=== PATIENT | female | born 1995 | race African-American/Black ===

== ENCOUNTER 2019-09-11 18:20 | Emergency (ER) | payer SELFPAY ==
[~2019-09-11] VITALS: Ht 170.2 cm; Wt 72.0 kg
[~2019-09-11 18:20] MED LIST: NO MEDICATIONS REPORTED
[2019-09-11] MEDS ORDERED: ACETAMINOPHEN 325MG TABLET PO ONE (19:00)
[2019-09-11] MEDS ORDERED: DIAZEPAM 5 MG TABLET PO ONE (19:30)
[2019-09-11] MEDS ORDERED: KETOROLAC 30MG/ML VIAL IM ONE (21:15)
[2019-09-11 21:23] VITALS: BP 124/76
[2019-09-11 21:42] LABS: UCG SCREEN NEGATIVE
== END 2019-09-11 21:33 | disposition home or self-care (01) ==
LOC: ER 18:20
DX: J20.9 Acute bronchitis, unspecified (principal); M94.0 Chondrocostal junction syndrome [Tietze]; F12.10 Cannabis abuse, uncomplicated
CPT/HCPCS: 71045; 81025; 93005; 96372; 99284; J1885

== ENCOUNTER 2021-07-06 15:45 | Inpatient (IN) | payer MEDICAID ==
[~2021-07-06] VITALS: Ht 162.6 cm; Wt 72.6 kg
[2021-07-06] MEDS ORDERED: BUTORPHANOL TARTRATE 2 MG/ML VIAL IV PRN (16:00)
[2021-07-06] MEDS ORDERED: LACTATED RINGERS 1,000 ML IV SCH (16:00)
[2021-07-06] MEDS ORDERED: NALOXONE HCL 0.4 MG/ML 1ML VIAL IM PRN (16:00)
[2021-07-06] MEDS ORDERED: LIDOCAINE HCL 1% 20ML VIAL (Pyxis) INJ INFIL SCH (16:00)
[2021-07-06] MEDS ORDERED: MISOPROSTOL 100MCG TABLET VG SCH (16:00)
[2021-07-06] MEDS ORDERED: DEXT 5%/LR + PITOCIN 20UNITS/L 1,000 ML IV SCH ×2 (16:00→18:00)
[2021-07-06] MEDS ORDERED: BETAMETHASONE ACET/BETAMET 30 MG/5 ML VIAL IM NR (16:30)
[2021-07-06] MEDS ORDERED: PENICILLIN G POTASSIUM 5 MMU in DEXT 5% WATER 100 ML IV SCH (16:30)
[2021-07-06] MEDS ORDERED: MAGNESIUM 4 G PREMIX 100 ML IV NR (16:30)
[2021-07-06 16:48] LABS: BASOPHILS % 0.3 % (0.0-2.0); HEMOGLOBIN. 9.5 g/dL (12.0-16.0); LYMPHOCYTES % 18.4 % (20.0-50.0); MEAN CORPUSCULAR HEMOGLOBIN 24.8 pg (28.0-32.0); MEAN CORPUSCULAR VOLUME 75.8 fL (81.0-99.0); MEAN PLATELET VOLUME 7.5 fl (7.4-10.4); MONOCYTES % 9.1 % (2.0-8.0); NEUTROPHILS % 70.2 % (40.0-76.0); PLATELET 239 x1000/uL (130-400); RED BLOOD CELL COUNT 3.83 mill/uL (4.2-5.4); RED CELL DISTRIBUTION WIDTH 14.2 % (11.6-14.6)
[2021-07-06 16:51] LABS: CLARITY URINE CLEAR (CLEAR); COLOR URINE YELLOW (YELLOW); KETONES URINE NEGATIVE (NEGATIVE); LEUKOCYTE ESTERASE URINE 1+ (NEGATIVE); NITRITE URINE NEGATIVE (NEGATIVE); OCCULT BLOOD URINE NEGATIVE (NEGATIVE); PH URINE 7.5 (4.5-8.0); PROTEIN URINE NEGATIVE (NEGATIVE); SPECIFIC GRAVITY URINE 1.021 (1.005-1.030); UROBILINOGEN URINE 0.2 E.U./dL (0.2-1.0)
[2021-07-06 17:00] LABS: PARTIAL THROMBOPLASTIN TIME 24.4 sec (23.4-31.0); PROTHROMBIN TIME 10.4 sec (9.6-11.0)
[2021-07-06] MEDS ORDERED: PROPOFOL 200MG/20ML VIAL IV ONE (17:07)
[2021-07-06] MEDS ORDERED: LIDOCAINE HCL/PF 1% 10 MG/ML 5ML VIAL ONE (17:08)
[2021-07-06] MEDS ORDERED: SUCCINYLCHOLINE CHLORIDE 200MG/10ML IV ONE (17:08)
[2021-07-06 17:15] LABS: *BARBITURATES SCREEN URINE NEGATIVE (NEGATIVE); *BENZODIAZEPINES SCREEN URINE NEGATIVE (NEGATIVE); *COCAINE SCREEN URINE NEGATIVE (NEGATIVE); METHADONE URINE SCREEN NEGATIVE (NEGATIVE); OPIATES URINE SCREEN NEGATIVE (NEGATIVE); PHENCYCLIDINE URINE SCREEN NEGATIVE (NEGATIVE)
[2021-07-06 17:16] LABS: *AMPHETAMINES SCREEN URINE NEGATIVE (NEGATIVE)
[2021-07-06] MEDS ORDERED: CEFAZOLIN SODIUM 1000MG/VIAL ONE (17:17)
[2021-07-06] MEDS ORDERED: OXYTOCIN 10 UNITS/ML 1ML ONE (17:19)
[2021-07-06] MEDS ORDERED: ROCURONIUM BROMIDE 10MG/ML VIAL 5ML IV ONE (17:20)
[2021-07-06] MEDS ORDERED: MIDAZOLAM HCL 2 MG/2 ML VIAL ONE (17:27)
[2021-07-06] MEDS ORDERED: FENTANYL CITRATE/PF 50MCG/ML 2ML VIAL ONE (17:27)
[2021-07-06 17:28] LABS: CANNABINOID URINE SCREEN PRESUMTIVE POSITIVE (NEGATIVE)
[2021-07-06] MEDS ORDERED: MAGNESIUM 20 G PREMIX (L & D) 500 ML IV SCH (17:30)
[2021-07-06] MEDS ORDERED: HYDROMORPHONE HCL/PF 2MG/ML CPJ IV PRN (17:30)
[2021-07-06] MEDS ORDERED: KETOROLAC 60MG/2ML VIAL IM ONE (17:40)
[2021-07-06] MEDS ORDERED: GLYCOPYRROLATE 0.2 MG/ML 2ML VIAL ONE (17:51)
[2021-07-06] MEDS ORDERED: NEOSTIGMINE METHYLSULFATE 1MG/ML 10 ML VIAL ONE (17:51)
[2021-07-06] MEDS ORDERED: ONDANSETRON HCL 4MG/2ML INJ ONE (17:51)
[2021-07-06] MEDS ORDERED: HYDROMORPHONE HCL/PF 2MG/ML (OR) ONE (17:52)
[2021-07-06] MEDS ORDERED: RHO(D) IMMUNE GLOBULIN 300 MCG/SYR IM PRN (18:00)
[2021-07-06] MEDS ORDERED: ONDANSETRON HCL 4MG/2ML INJ IV PRN (18:00)
[2021-07-06] MEDS ORDERED: HYDROCODONE/ACETAMINOPHEN 5/325MG TABLET PO PRN (18:00)
[2021-07-06 18:07] LABS: HEPATITIS B SURFACE ANTIGEN NEGATIVE
[2021-07-06 20:30] VITALS: BP 112/77
[2021-07-06] MEDS ORDERED: PENICILLIN G POTASSIUM 2.5 MMU in DEXTROSE 5% WATER 50 ML IV SCH (20:30)
[2021-07-06] MEDS ORDERED: NALOXONE HCL 0.4 MG/ML 1ML VIAL IV PRN (23:15)
[2021-07-07] VITALS: BP 100/68
[2021-07-07] MEDS ORDERED: INFLUENZA VACCINE 05/PF 0.5 ML SYRINGE IM ONE (01:00)
[2021-07-07] MEDS ORDERED: TETANUS, DIPHTHERIA, PERTUSSIS VAC/PF 0.5ML (>10YR OLD) IM ONE (01:00)
[2021-07-07] MEDS: ACETAMINOPHEN WITH CODEINE 300/30MG TABLET PO PRN ×4 (01:14→20:06)
[2021-07-07] MEDS: IBUPROFEN 400MG TABLET PO PRN ×3 (03:05→16:23)
[2021-07-07 04:00] VITALS: BP 106/56
[2021-07-07 07:51] LABS: HEMATOCRIT. 24.1 % (36.0-48.0); HEMOGLOBIN. 7.7 g/dL (12.0-16.0); MEAN CORPUSCULAR HEMOGLOBIN 24.2 pg (28.0-32.0); MEAN CORPUSCULAR VOLUME 75.8 fL (81.0-99.0); MEAN PLATELET VOLUME 7.7 fl (7.4-10.4); PLATELET 223 x1000/uL (130-400); RED BLOOD CELL COUNT 3.18 mill/uL (4.2-5.4); RED CELL DISTRIBUTION WIDTH 14.2 % (11.6-14.6)
[2021-07-07 08:00] VITALS: BP 104/68
[2021-07-07 15:56] VITALS: BP 102/64
[2021-07-07 19:30] VITALS: BP 99/63
[2021-07-07] MEDS: DOCUSATE SODIUM 100MG CAPSULE PO SCH (21:04)
[2021-07-07 21:08] LABS: PLATELET ESTIMATE NORMAL
[2021-07-08 04:00] VITALS: BP 103/48
[2021-07-08 08:00] VITALS: BP 99/63
[2021-07-08] MEDS: ACETAMINOPHEN WITH CODEINE 300/30MG TABLET PO PRN ×3 (08:12→17:05)
[2021-07-08] MEDS: IBUPROFEN 400MG TABLET PO PRN ×2 (08:12→22:19)
[2021-07-08 10:31] LABS: BASOPHILS % 0.3 % (0.0-2.0); EOSINOPHILS % 0.8 % (0.0-5.0); HEMATOCRIT. 21.9 % (36.0-48.0); HEMOGLOBIN. 7.2 g/dL (12.0-16.0); LYMPHOCYTES % 16.5 % (20.0-50.0); MEAN CORPUSCULAR HEMOGLOBIN 24.9 pg (28.0-32.0); MEAN CORPUSCULAR VOLUME 75.5 fL (81.0-99.0); MEAN PLATELET VOLUME 7.3 fl (7.4-10.4); MONOCYTES % 8.8 % (2.0-8.0); NEUTROPHILS % 73.6 % (40.0-76.0); PLATELET 218 x1000/uL (130-400)
[2021-07-08] MEDS: PRENATAL VIT/FE FUMARATE/FA TABLET PO SCH (12:16)
[2021-07-08 16:00] VITALS: BP 112/78
[2021-07-08] MEDS: FERROUS SULFATE 325MG TABLET PO SCH (17:05)
[2021-07-08 19:30] VITALS: BP 92/65
[2021-07-08] MEDS: DOCUSATE SODIUM 100MG CAPSULE PO SCH (22:16)
[2021-07-09 04:00] VITALS: BP 112/58
[2021-07-09] MEDS: IBUPROFEN 400MG TABLET PO PRN (04:32)
[2021-07-09] MEDS ORDERED: BISACODYL 10MG SUPP PR SCH (06:30)
[2021-07-09 08:30] VITALS: BP 112/69
[2021-07-09] MEDS: FERROUS SULFATE 325MG TABLET PO SCH (08:41)
[2021-07-09] MEDS: ACETAMINOPHEN WITH CODEINE 300/30MG TABLET PO PRN (08:41)
[2021-07-09] MEDS: PRENATAL VIT/FE FUMARATE/FA TABLET PO SCH (08:41)
[2021-07-16 13:06] LABS: CANNABINOID CONFIRMATION URINE Positive (.)
== END 2021-07-09 11:30 | disposition home or self-care (01) | DRG 540 ==
LOC: OBSVTOIN 15:45 → 8 EST LDRP 15:45 → 8EST 20:30
PROVIDERS: ADMIT Obstetrics & Gynecology; ATTEND Obstetrics & Gynecology
PROC: 10D00Z0 Extraction of Products of Conception, High, Open Approach (ICD-10-PCS; principal; 2021-07-06)
DX: O42.912 Preterm premature rupture of membranes, unspecified as to length of time between rupture and onset of labor, second trimester (principal); O45.92 Premature separation of placenta, unspecified, second trimester; O60.12X0 Preterm labor second trimester with preterm delivery second trimester, not applicable or unspecified; O32.2XX0 Maternal care for transverse and oblique lie, not applicable or unspecified; D72.829 Elevated white blood cell count, unspecified; O99.13 Other diseases of the blood and blood-forming organs and certain disorders involving the immune mechanism complicating the puerperium; Z20.822 Contact with and (suspected) exposure to COVID-19; O76 Abnormality in fetal heart rate and rhythm complicating labor and delivery; Z3A.27 27 weeks gestation of pregnancy; Z37.0 Single live birth
CPT/HCPCS: 36415; 59412; 76815; 80305; 80349; 81003; 85025; 86592; 86703; 86762; 86850; 86900; 86920; 87340; 87426; 88307; 90686; 90715; 96372; 99281; J0330; J0690; J0702; J1170; J1885; J2250; J2405; J2540; J2590; J2704; J2710; J3010; J3475; J3490; J7060; J7120

== ENCOUNTER 2025-06-07 14:53 | Inpatient (IN) | payer MEDICAID ==
[~2025-06-07] VITALS: Ht 165.1 cm; Wt 108.0 kg
[2025-06-07 14:55] VITALS: O2SAT 99
[2025-06-07] MEDS: DIPHENHYDRAMINE 50MG/ML VIAL IV ONE (15:59)
[2025-06-07] MEDS: SODIUM CHLORIDE 0.9% 1,000 ML IV ONE ×2 (15:59→17:37)
[2025-06-07] MEDS: HALOPERIDOL LACTATE 5MG/ML VIAL IM ONE (15:59)
[2025-06-07] MEDS: PANTOPRAZOLE SODIUM 40 MG/VIAL IV ONE (15:59)
[2025-06-07 16:02] LABS: BASOPHILS % 0.3 % (0.0-2.0); EOSINOPHILS % 2.5 % (0.0-5.0); HEMATOCRIT. 36.6 % (36.0-48.0); HEMOGLOBIN. 11.3 g/dL (12.0-16.0); LYMPHOCYTES % 12.9 % (20.0-50.0); MEAN PLATELET VOLUME 8.3 fl (7.4-10.4); MONOCYTES % 5.0 % (2.0-8.0); NEUTROPHILS % 79.3 % (40.0-76.0); PLATELET 361 x1000/uL (130-400); RED BLOOD CELL COUNT 4.66 mill/uL (4.2-5.4); RED CELL DISTRIBUTION WIDTH 13.1 % (11.6-14.6)
[2025-06-07] MEDS: METOCLOPRAMIDE HCL 10MG/2ML VIAL IV ONE ×2 (16:13)
[2025-06-07 16:42] LABS: CREATININE 0.8 mg/dL (0.6-1.0); UREA NITROGEN BLOOD 12 mg/dL (9-23)
[2025-06-07 16:44] LABS: ASPARTATE AMINOTRANSFERASE 17 IU/L (<34); BILIRUBIN DIRECT 0.1 mg/dL (<=3.0); BILIRUBIN TOTAL 0.4 mg/dL (0.1-1.0)
[2025-06-07 16:45] LABS: PROTEIN TOTAL 7.9 g/dL (6.0-8.3)
[2025-06-07 16:50] LABS: B-HCG QUANTITATIVE < 1 mIU/mL (<6)
[2025-06-07] MEDS ORDERED: CEFTRIAXONE 2,000 MG in DEXT 5% WATER 100 ML IV SCH (18:45)
[2025-06-07] MEDS: METRONIDAZOLE 500 MG PREMIX 100 ML IV ONE (19:06)
[2025-06-07] MEDS: POTASSIUM CHLORIDE 20MEQ/PACKET PO ONE (19:06)
[2025-06-07] MEDS: CEFTRIAXONE 2GM/50ML 50ML IV SCH (19:43)
[2025-06-07] MEDS ORDERED: IPRATROPIUM/ALBUTEROL 0.5-3(2.5)MG/3ML NEB HHN PRN (20:15)
[2025-06-07] MEDS ORDERED: LORAZEPAM 2MG/ML UD SYRINGE IV PRN (20:15)
[2025-06-07] MEDS ORDERED: DOCUSATE SODIUM 100MG CAPSULE PO PRN (20:15)
[2025-06-07] MEDS ORDERED: ONDANSETRON HCL 4MG/2ML INJ IV PRN (20:15)
[2025-06-07] MEDS ORDERED: CLONIDINE 0.1MG TABLET PO PRN (20:15)
[2025-06-07] MEDS ORDERED: ACETAMINOPHEN 325MG TABLET PO PRN (20:15)
[2025-06-07 20:58] LABS: HCG SCREEN NEGATIVE
[2025-06-07] MEDS: ACETAMINOPHEN 325MG TABLET PO PRN (21:21)
[2025-06-07 22:00] VITALS: BP 103/54; PULSE 56; RESP 16; TEMP 36.2; O2SAT 99
[2025-06-07 22:15] VITALS: BP 103/54; PULSE 56; RESP 16; TEMP 36.2512
[2025-06-07] MEDS: SODIUM CHLORIDE 0.9% 1,000 ML IV SCH (22:21)
[2025-06-07] MEDS: ENOXAPARIN 40MG/0.4ML SYR SUBCUT SCH (22:21)
[2025-06-08] VITALS: BP 96/54; PULSE 59; RESP 16; TEMP 36.3; O2SAT 95
[2025-06-08 04:00] VITALS: BP 105/61; PULSE 68; RESP 18; TEMP 36.5; O2SAT 97
[2025-06-08 06:30] LABS: BASOPHILS % 0.4 % (0.0-2.0); EOSINOPHILS % 2.6 % (0.0-5.0); HEMATOCRIT. 31.9 % (36.0-48.0); HEMOGLOBIN. 10.0 g/dL (12.0-16.0); LYMPHOCYTES % 28.8 % (20.0-50.0); MEAN PLATELET VOLUME 7.8 fl (7.4-10.4); MONOCYTES % 7.9 % (2.0-8.0); NEUTROPHILS % 60.3 % (40.0-76.0); PLATELET 272 x1000/uL (130-400); RED BLOOD CELL COUNT 4.08 mill/uL (4.2-5.4); RED CELL DISTRIBUTION WIDTH 12.9 % (11.6-14.6)
[2025-06-08 06:36] LABS: CREATININE 0.6 mg/dL (0.6-1.0); UREA NITROGEN BLOOD 8 mg/dL (9-23)
[2025-06-08 08:00] VITALS: BP 99/64; PULSE 74; RESP 18; TEMP 36.7; O2SAT 98
[2025-06-08] MEDS: POTASSIUM CHLORIDE 20MEQ TABLET SR PO NR (09:04)
[2025-06-08 12:00] VITALS: BP 123/68; PULSE 86; RESP 18; TEMP 36.7; O2SAT 100
[2025-06-08] MEDS: GABAPENTIN 300MG CAPSULE PO SCH (13:10)
[2025-06-08] MEDS: DIPHENHYDRAMINE 50MG/ML VIAL IV SCH (13:11)
[2025-06-08] MEDS: KETOROLAC 15MG/ML VIAL IV SCH (13:12)
[2025-06-08] MEDS ORDERED: BENZTROPINE MESYLATE 1 MG/ML 2ML VIAL IV SCH (14:00)
[2025-06-08] MEDS: BENZTROPINE MESYLATE 1 MG/ML 2ML VIAL IM SCH (14:17)
[2025-06-08] MEDS: LACTATED RINGERS 1,000 ML IV ONE (14:24)
[2025-06-08 16:30] VITALS: BP 118/72; PULSE 60; RESP 18; TEMP 37.1; O2SAT 100
[2025-06-08 18:43] LABS: BASOPHILS % 0.7 % (0.0-2.0); EOSINOPHILS % 2.6 % (0.0-5.0); HEMATOCRIT. 34.5 % (36.0-48.0); HEMOGLOBIN. 10.7 g/dL (12.0-16.0); LYMPHOCYTES % 37.8 % (20.0-50.0); MEAN PLATELET VOLUME 8.3 fl (7.4-10.4); MONOCYTES % 7.6 % (2.0-8.0); NEUTROPHILS % 51.3 % (40.0-76.0); PLATELET 282 x1000/uL (130-400); RED BLOOD CELL COUNT 4.33 mill/uL (4.2-5.4); RED CELL DISTRIBUTION WIDTH 13.1 % (11.6-14.6)
[2025-06-08 19:03] LABS: CREATININE 0.6 mg/dL (0.6-1.0); UREA NITROGEN BLOOD 7 mg/dL (9-23)
[2025-06-08 19:05] LABS: PHOSPHORUS 2.2 mg/dL (2.5-4.9)
[2025-06-08 20:30] VITALS: BP 124/71; PULSE 55; RESP 19; TEMP 36.6; O2SAT 100
[2025-06-08] MEDS: BENZTROPINE MESYLATE 1MG TABLET PO SCH (21:05)
[2025-06-09 01:36] LABS: *AMPHETAMINES SCREEN URINE NEGATIVE (NEGATIVE); *BARBITURATES SCREEN URINE NEGATIVE (NEGATIVE); *BENZODIAZEPINES SCREEN URINE NEGATIVE (NEGATIVE); *COCAINE SCREEN URINE NEGATIVE (NEGATIVE); CANNABINOID URINE SCREEN PRESUMPTIVE POSITIVE (NEGATIVE); METHADONE URINE SCREEN NEGATIVE (NEGATIVE); OPIATES URINE SCREEN NEGATIVE (NEGATIVE); PHENCYCLIDINE URINE SCREEN NEGATIVE (NEGATIVE)
[2025-06-09 01:37] LABS: ECSTASY MDMA SCREEN URINE NEGATIVE (NEGATIVE)
[2025-06-09 04:00] VITALS: BP 106/54; PULSE 65; RESP 18; TEMP 36.8; O2SAT 97
[2025-06-09] MEDS: ENOXAPARIN 30MG/0.3ML SYR SUBCUT SCH (09:16)
[2025-06-09 10:31] LABS: BASOPHILS % 0.7 % (0.0-2.0); EOSINOPHILS % 3.8 % (0.0-5.0); HEMATOCRIT. 29.3 % (36.0-48.0); HEMOGLOBIN. 9.3 g/dL (12.0-16.0); LYMPHOCYTES % 27.9 % (20.0-50.0); MEAN PLATELET VOLUME 8.3 fl (7.4-10.4); MONOCYTES % 8.1 % (2.0-8.0); NEUTROPHILS % 59.5 % (40.0-76.0); PLATELET 230 x1000/uL (130-400); RED BLOOD CELL COUNT 3.73 mill/uL (4.2-5.4); RED CELL DISTRIBUTION WIDTH 12.8 % (11.6-14.6)
[2025-06-09 10:45] LABS: CREATININE 0.6 mg/dL (0.6-1.0); UREA NITROGEN BLOOD 6 mg/dL (9-23)
[2025-06-09 12:00] VITALS: BP 112/72; PULSE 60; RESP 18; TEMP 37; O2SAT 100
[2025-06-09 16:00] VITALS: BP 126/83; PULSE 58; RESP 18; TEMP 36.9; O2SAT 100
[2025-06-09 16:30] VITALS: BP 126/83; PULSE 58; RESP 18; TEMP 98.5
== END 2025-06-09 17:46 | disposition home or self-care (01) | DRG 249 ==
LOC: ER 14:53 → 8WST 18:53 → EDBEDREQ 18:55 → EDBEDREQTM 18:55 → ENRESERV 21:40 → 8EST 06-08 22:02
PROVIDERS: ADMIT Internal Medicine; ATTEND Internal Medicine
DX: K52.9 Noninfective gastroenteritis and colitis, unspecified (principal); E87.20 Acidosis, unspecified; R11.16 Cannabis hyperemesis syndrome; D72.829 Elevated white blood cell count, unspecified; G24.9 Dystonia, unspecified
CPT/HCPCS: 36415; 74176; 80048; 80076; 80305; 80320; 82550; 82962; 83605; 83735; 84100; 84702; 84703; 85025; 96361; 96372; 96374; 96375; 99285; J0515; J0696; J1200; J1630; J1650; J1885; J2470; J2765; J3490; J7030; G0480